=== PATIENT | male | born 1975 | race Caucasian/White ===

== ENCOUNTER 2021-03-16 16:04 | Emergency (ER) | payer OTHER ==
[2021-03-16 16:14] VITALS: BP 156/95
[2021-03-16] MEDS ORDERED: LIDOCAINE 1%-EPI 1:100000 20 ML MDV SUBQ STA (16:28)
--- NOTE | 2021-03-16 16:42 | ED Physician Documentation ---
PD HPI WOUND RECHECK - Stated complaint Stated Complaint: LT HAND SPLINTER/SWOLLEN - Chief complaint Chief Complaint: Wound - Histroy obtained from History obtained from: Patient (46-year-old gentleman who had his last tetanus shot 3 years ago presents with a splinter in the dorsum of his left hand its been there for about 10 days. He tried to get it out on his own but was unsuccessful.) Review of Systems Constitutional: reports: Reviewed and negative Cardiac: reports: Reviewed and negative Respiratory: reports: Reviewed and negative PD PAST MEDICAL HISTORY - Allergies Allergies/Adverse Reactions: Allergies Allergy/AdvReac Type Severity Reaction Status Date / Time No Known Drug Allergies Allergy Verified 03/16/21 16:31 PD ED PE NORMAL - Vitals Vital signs reviewed: Yes - General General: Alert and oriented X 3, No acute distress - Extremities Extremities: Other (There is a puncture wound with a palpable wood foreign body in the dorsum of the left hand) - Neuro Neuro: Alert and oriented X 3, Normal speech - Psych Psych: Normal mood, Normal affect Results - Vitals Vitals: Vital Signs - 24 hr 03/16/21 16:09 Temperature 36.8 C Heart Rate 78 Respiratory 16 Rate Blood Pressure 156/95 H O2 Saturation 98 Oxygen O2 Source Room air Procedures - General procedure General procedure: The left hand was prepped and draped in sterile fashion and locally infiltrated with lidocaine with epinephrine. A small incision was made with an 11 blade and the wood foreign body was removed which was about 2 cm long. He tolerated this well and at the laceration was closed with a single 4-0 Nylon stitch Departure - Departure Disposition: 01 Home, Self Care Clinical Impression: Foreign body entering through skin Qualifiers: Encounter type: initial encounter Qualified Code(s): W45.8XXA - Other foreign body or object entering through skin, initial encounter Condition: Good Record reviewed to determine appropriate education?: Yes Instructions: ED Foreign Body Splinter Removal Print Language: Montenegrin Comments: Come back for any signs of infection which would include: Redness, swelling, drainage, increased pain, or fevers. You can wash it soap and water. Keep it covered and moist with bacitracin ointment which is available over the counter; avoid neosporin. Follow-up with your physician in 7-10 days for suture removal.
== END 2021-03-16 16:52 | disposition home or self-care (01) ==
LOC: ED 16:04
DX: S60.552A Superficial foreign body of left hand, initial encounter (principal); W45.8XXA Other foreign body or object entering through skin, initial encounter
CPT/HCPCS: 10120